=== PATIENT | female | born 1975 | race Caucasian/White ===

== ENCOUNTER → 2016-08-06 | Outpatient (CLI) | payer BC ==
[~2016-08-06] MED LIST: LEVO-217 PO; PRED20TA PO; SPIR25TA PO; [UNRECOGNIZED DRUG - CODE] PO
[2016-08-06 12:38] LABS: HEMATOCRIT 37.3 % (37-47); MEAN CELL VOLUME 94.4 fL (80-100); MEAN CORPUSCULAR HEMOGLOBIN 31.6 pg (25-34); MEAN CORPUSCULAR HGB CONC 33.5 g/dl (32-36); MEAN PLATELET VOLUME 9.8 fL (7.4-10.4); PLATELET COUNT 249 K/uL (130-400); RED BLOOD COUNT 3.95 M/uL (4.2-5.4); WHITE BLOOD COUNT 6.93 K/uL (4.8-10.8)
[2016-08-06 12:58] LABS: ALT/SGPT 20 U/L (12-78); BLOOD UREA NITROGEN 9 mg/dl (7-18); BUN/CREATININE RATIO 10.7 (10-20); CALCIUM 8.7 mg/dl (8.5-10.1); CARBON DIOXIDE 27 mmol/L (21-32); CHLORIDE 105 mmol/L (98-107); CHOLESTEROL 146 mg/dl (0-200); CREATININE 0.83 mg/dl (0.60-1.20); GLUCOSE 82 mg/dl (70-99); POTASSIUM 4.1 mmol/L (3.5-5.1); SODIUM 139 mmol/L (136-145); TRIGLYCERIDES 56 mg/dl (0-150); VERY LOW DENSITY LIPOPROT CALC 11 mg/dl
[2016-08-06 13:01] LABS: ALB/GLOB RATIO 1.2 (0.9-2); ALKALINE PHOSPHATASE 44 U/L (45-117); AST/SGOT 18 U/L (15-37); CHOLESTEROL/HDL RATIO 2.1; HDL CHOLESTEROL 69 mg/dl; LDL CHOLESTEROL CALCULATED 66 mg/dl
== END | disposition home or self-care (01) ==
LOC: C.LABBFT 08:41
PROVIDERS: ATTEND Physician Assistant Medical
DX: Z13.6 Encounter for screening for cardiovascular disorders (principal); Z13.1 Encounter for screening for diabetes mellitus

== ENCOUNTER → 2016-10-30 | Outpatient (CLI) | payer BC | END | disposition home or self-care (01) | LOC: C.PAPS 11:58 | PROVIDERS: ATTEND Obstetrics & Gynecology | DX: Z01.419 Encounter for gynecological examination (general) (routine) without abnormal findings (principal) ==

== ENCOUNTER → 2016-12-11 | Outpatient (CLI) | payer BC ==
--- NOTE | 2016-12-11 15:22 | MAMMOGRAPHY REPORT ---
BILATERAL DIGITAL SCREENING MAMMOGRAM TOMOSYNTHESIS WITH CAD: 12/11/2016 CLINICAL HISTORY: Routine screening. Patient has no complaints. TECHNIQUE: Breast tomosynthesis in addition to standard 2D mammography was performed. Current study was also evaluated with a Computer Aided Detection (CAD) system. COMPARISON: Comparison is made to exams dated: 12/11/2015 mammogram, 11/21/2014 mammogram, 11/20/2013 mammogram, 05/19/2013 mammogram, 12/19/2012 localization, and 12/19/2012 specimen - [facility]. BREAST COMPOSITION: The tissue of both breasts is heterogeneously dense, which may obscure small mas ses. FINDINGS: No suspicious masses, calcifications, or areas of architectural distortion are noted in ei ther breast. There has been no significant interval change compared to prior exams. IMPRESSION: ACR BI-RADS CATEGORY 1: NEGATIVE There is no mammographic evidence of malignancy. A 1 year screening mammogram is recommended. The pa tient will receive written notification of the results. Approximately 10% of breast cancers are not detected with mammography. A negative mammographic report should not delay biopsy if a clinically suggestive mass is present. Elissa Cesar M.D. ah/:12/11/2016 14:08:37 Drum Saw Operator: Laura ROSALES(R)(M), [facility] letter sent: Normal 1/2 BI-RADS Code: ACR BI-RADS Category 1: Negative
== END | disposition home or self-care (01) ==
LOC: C.MAMM 08:43
PROVIDERS: ATTEND Internal Medicine
DX: Z12.31 Encounter for screening mammogram for malignant neoplasm of breast (principal)

== ENCOUNTER → 2017-04-23 | Outpatient (CLI) | payer BC | END | disposition home or self-care (01) | LOC: C.RDSM 14:04 | PROVIDERS: ATTEND Physical Medicine & Rehabilitation Sports Medicine | DX: R22.40 Localized swelling, mass and lump, unspecified lower limb (principal); L98.9 Disorder of the skin and subcutaneous tissue, unspecified; M79.602 Pain in left arm ==

== ENCOUNTER → 2017-04-29 | Outpatient (CLI) | payer BC ==
--- NOTE | 2017-04-29 13:09 | DIAGNOSTIC IMAGING REPORT ---
MRI OF THE RIGHT FOREFOOT WITHOUT CONTRAST CLINICAL HISTORY: Right foot pain. Ganglion cyst. COMPARISON STUDY: Right foot radiographs April 23, 2017. TECHNIQUE: Utilizing a 1.5 Bethany magnet and dedicated coil, multiplanar, multiecho imaging of the right forefoot was performed without intravenous contrast. The MRI of the right ankle/hindfoot will be reported separately. FINDINGS: Tarsometatarsal joints are intact. No marrow edema or marrow replacement is present. There is no evidence for a stress fracture within the right forefoot. No erosions are identified. There is minimal osteoarthritis of the right first metatarsophalangeal joint. A marker was placed on the skin at site of palpable abnormality. There is a corresponding multiloculated subcutaneous cystic lesion that measures 1.7 x 0.6 x 1.4 cm within the dorsal subcutaneous tissues of the right midfoot, overlying the intermediate cuneiform bone and along the lateral aspect of the extensor hallucis longus tendon. No additional lesions are identified on this examination. No solid lesion is present. Musculature of the right forefoot is within normal limits. IMPRESSION: 1. 1.7 x 0.6 x 1.4 cm cystic multiloculated subcutaneous lesion of the dorsal subcutaneous tissues of the right midfoot, overlying the intermediate cuneiform bone and along the lateral aspect of the extensor hallucis longus tendon. This represents the palpable abnormality and is consistent with a ganglion cyst. 2. Otherwise, unremarkable MRI of the right forefoot. Electronically signed by: Derrick Santiago M.D. 04/29/2017 1:08 PM Dictated Date/Time: 04/29/2017 1:00 PM
--- NOTE | 2017-04-29 13:32 | DIAGNOSTIC IMAGING REPORT ---
MRI OF THE RIGHT ANKLE WITHOUT IV CONTRAST CLINICAL HISTORY: Right ankle pain. Ganglion. COMPARISON STUDY: No priors. TECHNIQUE: MRI of the right ankle was performed utilizing various T1 and T2-weighted sequences in the axial, sagittal, and coronal planes. IV contrast was not administered for this examination. Note that interpretation is suboptimal without plain film correlate. FINDINGS: Normal marrow signal intensity is preserved throughout the visualized osseous structures. There is no MRI evidence of fracture. No osteochondral defect is seen in the talar dome. No joint effusion is identified. The Achilles tendon is normal in morphology and signal intensity. A cutaneous marker has been placed along the dorsal surface of the midfoot, overlying the middle cuneiform. This measures 0.7 x 1.2 x 1.8 cm and is typical in appearance for a ganglion cyst. This abuts the extensor hallucis longus tendon which is mildly displaced medially. The anterior tendons are intact, as are the posterior and peroneal tendons. The visualized portions of the plantar fascia appear intact. Mild subcutaneous soft tissue edema is seen along the plantar aspect of the foot superficial to the plantar fascia. There is irregularity and thickening of the anterior tibiofibular ligament, likely related to remote injury. The anterior talofibular ligament appears intact. There is maintenance of normal fat within the sinus tarsi. The deltoid and spring ligaments are intact as visualized. The regional musculature is normal in bulk and signal intensity. IMPRESSION: 1. No acute osseous abnormality is identified involving the right ankle. 2. There is a 1.8 cm ganglion cyst identified along the dorsal surface of the foot at the level of the middle cuneiform. This is likely related to the sheath of the extensor hallucis longus tendon which is slightly displaced medially. 3. Question mild plantar fasciitis. Clinical correlation will be required. Dictated: 04/29/2017 1:03 PM Transcribed: 04/29/2017 1:32 PM [email or web address] Electronically signed by: Franklin Claudio M.D. 04/29/2017 2:03 PM Dictated Date/Time: 04/29/2017 1:03 PM
== END | disposition home or self-care (01) ==
LOC: C.MRI 11:47
PROVIDERS: ATTEND Physical Medicine & Rehabilitation Sports Medicine
DX: M67.471 Ganglion, right ankle and foot (principal)

== ENCOUNTER → 2017-05-18 | Outpatient (CLI) | payer BC | END | disposition home or self-care (01) | LOC: C.LABSPEC 10:14 | PROVIDERS: ATTEND Internal Medicine | DX: R39.9 Unspecified symptoms and signs involving the genitourinary system (principal) ==

== ENCOUNTER → 2017-09-15 | Outpatient (CLI) | payer BC ==
[~2017-09-15] MED LIST changes: +LEVO50TA PO; +MULT-506 PO; +RIZA10TA18 PO
--- NOTE | 2017-09-15 14:55 | MAMMOGRAPHY REPORT ---
BILATERAL DIGITAL SCREENING MAMMOGRAM TOMOSYNTHESIS WITH CAD: 09/15/2017 CLINICAL HISTORY: Routine screening. Patient has no complaints. TECHNIQUE: The study was acquired using full field digital technology and interpreted from soft copy. Breast tomosynthesis in addition to standard 2D mammography was performed. Current study was also ev aluated with a Computer Aided Detection (CAD) system. COMPARISON: Comparison is made to exams dated: 12/11/2016 mammogram, 12/11/2015 mammogram, 11/21/2014 mammogram, 11/20/2013 mammogram, 12/19/2012 specimen, and 11/18/2012 ultrasound - [facility]. BREAST COMPOSITION: The tissue of both breasts is heterogeneously dense, which may obscure small mass es. FINDINGS: A linear scar marker overlies the inferior right breast, denoting and area of prior surgery . No new suspicious mass, architectural distortion or cluster of microcalcifications is seen. IMPRESSION: ACR BI-RADS CATEGORY 1: NEGATIVE There is no mammographic evidence of malignancy. A 1 year screening mammogram is recommended.( 019) The patient will receive written notification of the results. Some breast cancers are not detected with mammography. A negative mammographic report should not андрей y biopsy if a clinically suggestive mass is present. Debbie Bailey M.D. ay/:09/15/2017 12:34:32 Membership Solicitor: Majo Hammond, [facility] letter sent: Normal 1/2 BI-RADS Code: ACR BI-RADS Category 1: Negative
== END | disposition home or self-care (01) ==
LOC: C.MAMM 09:48
PROVIDERS: ATTEND Internal Medicine
DX: Z12.31 Encounter for screening mammogram for malignant neoplasm of breast (principal)

== ENCOUNTER → 2017-09-28 | Outpatient (CLI) | payer BC ==
[~2017-09-28] MED LIST changes: +EPP3/2 IM; +HYDR-5688 PO; -LEVO-217 PO; +METH4PAK PO; -PRED20TA PO; -SPIR25TA PO; -[UNRECOGNIZED DRUG - CODE] PO
== END | disposition home or self-care (01) ==
LOC: C.LABBFT 10:29
PROVIDERS: ATTEND Internal Medicine
DX: R39.9 Unspecified symptoms and signs involving the genitourinary system (principal)

== ENCOUNTER 2017-09-29 16:56 | Emergency (ER) | payer BC ==
[~2017-09-29 16:56] MED LIST changes: -EPP3/2 IM; -HYDR-5688 PO; -METH4PAK PO
[2017-09-29 17:00] VITALS: TEMP 36.8
[2017-09-29] MEDS ORDERED: METHYLPREDNISOLONE 125 MG VIAL IV STA (17:17)
[2017-09-29] MEDS ORDERED: SODIUM CHLORIDE 0.9% 500ML 500 ML IV STA (17:17)
[2017-09-29] MEDS ORDERED: RANITIDINE HCL 50 MG/100 ML D5W IV STA (17:17)
[2017-09-29] MEDS ORDERED: DiphenhydrAMINE HCL 50 MG/ML VIAL IV STA (17:17)
[2017-09-29 17:48] LABS: BASO % 0.2 %; BASO ABS # 0.02 K/uL (0-0.2); EOS % 2.1 %; EOS ABS # 0.18 K/uL (0-0.5); HEMATOCRIT 38.1 % (37-47); HEMOGLOBIN 13.1 g/dL (12.0-16.0); IG# 0.01 K/uL (0.00-0.02); LYMPH % 25.8 %; LYMPH ABS # 2.21 K/uL (1.2-3.4); MEAN CELL VOLUME 92.7 fL (80-100); MEAN CORPUSCULAR HEMOGLOBIN 31.9 pg (25-34); MEAN CORPUSCULAR HGB CONC 34.4 g/dl (32-36); MEAN PLATELET VOLUME 9.5 fL (7.4-10.4); MONO % 7.1 %; MONO ABS # 0.61 K/uL (0.11-0.59); NEUT % 64.7 %; NEUT ABS # 5.55 K/uL (1.4-6.5); PLATELET COUNT 224 K/uL (130-400); RED CELL DISTRIBUTION WIDTH SD 40.8 fL (36.4-46.3); WHITE BLOOD COUNT 8.58 K/uL (4.8-10.8)
[2017-09-29 17:49] VITALS: O2SAT 100
[2017-09-29 18:04] LABS: BLOOD UREA NITROGEN 11 mg/dl (7-18); CALCIUM 8.9 mg/dl (8.5-10.1); CARBON DIOXIDE 25 mmol/L (21-32); CREATININE 0.89 mg/dl (0.60-1.20); GLUCOSE 147 mg/dl (70-99); POTASSIUM 3.9 mmol/L (3.5-5.1); SODIUM 138 mmol/L (136-145)
[2017-09-29] MEDS ORDERED: METH4PAK PO (19:33)
[2017-09-29] MEDS ORDERED: EPP3/2 IM (19:33)
[2017-09-29 20:54] VITALS: BP 116/66; PULSE 86; O2SAT 97
--- NOTE | 2017-09-29 22:28 | EMERGENCY ROOM VISIT NOTE ---
History First contact with patient: 17:05 Chief Complaint: ALLERGIC REACTION Stated Complaint: STUNG BY BEE, ALLERGIC, USED EPI Nursing Triage Summary: Second right toe bee sting. pt had Epi pen and Benadryl prior to ED History of Present Illness The patient is a 41 year old female who presents to the Emergency Room with complaints of a bee sting and anaphylactic reaction after being stung on the right second toe approximately 45 minutes prior to arrival. The patient reports that immediately after being stung, she started to notice a burning sensation in her right foot and ankle region. She then started to develop tightness in the chest. The patient took a Benadryl, and her administered an EpiPen before bringing her to the emergency department for further evaluation. Patient reports persistent chest tightness, but denies any shortness of breath, throat/tongue/lip swelling. She denies any nausea, headache or abdominal pain. She rates her discomfort a 4 out of 10. The patient has had a prior anaphylactic reaction to bee stings. She reports that her EpiPen injector is in date. Review of Systems HEENT: Denies dizziness, visual problems, hearing loss, tinnitus. Denies difficulty swallowing or oral lesions. PULMONARY: Denies cough, shortness of breath, sputum production or hemoptysis. CARDIOVASCULAR: Denies palpitations or dyspnea on exertion with this episode. GASTROINTESTINAL: Denies diarrhea, constipation, nausea, vomiting, or abdominal pain. GENITOURINARY: Denies dysuria, frequency, urgency or nocturia. NEUROLOGIC: Denies history of epilepsy, CVA, TIA or chronic headaches. MUSCULOSKELETAL: Denies history of joint tenderness/swelling. SKIN: Denies rashes or lesions. PSYCHIATRIC: Denies history of depression or mental illness. ENDOCRINE: Denies history of diabetes or thyroid disorders. Past Medical/Surgical History Medical Problems: (1) Anal Fissure (2) Hypothyroidism Nos (3) Lump Or Mass In Breast (4) Migraine (5) Ovarian Cyst Nec/Nos Surgical Problems: (1) No history of previous surgery Family History Unremarkable Social History Smoking Status: Never Smoker Alcohol Use: occasionally Marital Status: Housing Status: lives with family Occupation Status: employed Current/Historical Medications Scheduled Epinephrine (Epipen), 0.3 MG IM UD Levothyroxine Sodium (Synthroid), 50 MCG PO DAILY Methylprednisolone (Medrol Dosepak), 0 PO DAILY Multivitamin (Multivitamin), 1 TAB PO DAILY Scheduled PRN Rizatriptan Benzoate (Maxalt), 10 MG PO DIRECTED PRN for Migraine Physical Exam Vital Signs Date Time Temp Pulse Resp B/P (MAP) Pulse Ox O2 Delivery O2 Flow Rate FiO2 09/29/17 20:54 86 16 116/66 97 Room Air 09/29/17 18:30 62 16 117/68 100 Room Air 09/29/17 18:06 65 09/29/17 17:50 84 16 99 Room Air 09/29/17 17:49 100 Room Air 09/29/17 17:49 100 Room Air 09/29/17 17:22 Room Air 09/29/17 17:00 36.8 76 20 149/75 100 Room Air Physical Exam CONSTITUTIONAL: Healthy and well nourished. Alert and oriented X 3 with positive affect. Patient does not appear in any acute distress. HEENT: Normocephalic, atraumatic. Pupils equal, round and reactive. No scleral icterus or conjunctival injection. No facial erythema or edema noted. OROPHARYNX: No evidence for angioedema. NECK: Full active range of motion without discomfort. RESPIRATORY: Clear to auscultation bilaterally with no wheezing, crackles, rhonchi or stridor. CARDIOVASCULAR: Regular rate and rhythm with no murmurs, rubs or gallops. GASTROINTESTINAL: Bowel sounds present in all quadrants. Abdomen is soft and nontender to palpation. MUSCULOSKELETAL: Full range of motion of all joints without discomfort. No peripheral edema noted. Does have mild redness and swelling of the right second toe. Close examination with an otoscope does not show any retained stinger. INTEGUMENTARY: No rash or other significant dermatologic conditions noted. The hives or skin blanching/erythema. HEMATOLOGIC: No ecchymosis or petechiae. NEUROLOGIC: No focal neurologic deficits noted. Medical Decision & Procedures ER Provider Diagnostic Interpretation: My interpretation of an ECG shows a normal sinus rhythm of [address] elevation or other conduction abnormalities. Computer reading is suggestive of an incomplete right bundle branch block, however when compared with an ECG dated 02/26/96, there are no acute changes. The patient refused a portable chest x-ray. Laboratory Results 09/29/17 17:35 Red Blood Count 4.11, Mean Corpuscular Volume 92.7, Mean Corpuscular Hemoglobin 31.9, Mean Corpuscular Hemoglobin Concent 34.4, Mean Platelet Volume 9.5, Neutrophils (%) (Auto) 64.7, Lymphocytes (%) (Auto) 25.8, Monocytes (%) (Auto) 7.1, Eosinophils (%) (Auto) 2.1, Basophils (%) (Auto) 0.2, Neutrophils # (Auto) 5.55, Lymphocytes # (Auto) 2.21, Monocytes # (Auto) 0.61, Eosinophils # (Auto) 0.18, Basophils # (Auto) 0.02 09/29/17 17:35 Test 09/29/17 17:35 09/29/17 17:43 White Blood Count 8.58 K/uL (4.8-10.8) Red Blood Count 4.11 M/uL (4.2-5.4) Hemoglobin 13.1 g/dL (12.0-16.0) Hematocrit 38.1 % (37-47) Mean Corpuscular Volume 92.7 fL (80-100) Mean Corpuscular Hemoglobin 31.9 pg (25-34) Mean Corpuscular Hemoglobin Concent 34.4 g/dl (32-36) Platelet Count 224 K/uL (130-400) Mean Platelet Volume 9.5 fL (7.4-10.4) Neutrophils (%) (Auto) 64.7 % Lymphocytes (%) (Auto) 25.8 % Monocytes (%) (Auto) 7.1 % Eosinophils (%) (Auto) 2.1 % Basophils (%) (Auto) 0.2 % Neutrophils # (Auto) 5.55 K/uL (1.4-6.5) Lymphocytes # (Auto) 2.21 K/uL (1.2-3.4) Monocytes # (Auto) 0.61 K/uL (0.11-0.59) Eosinophils # (Auto) 0.18 K/uL (0-0.5) Basophils # (Auto) 0.02 K/uL (0-0.2) RDW Standard Deviation 40.8 fL (36.4-46.3) RDW Coefficient of Variation 12.0 % (11.5-14.5) Immature Granulocyte % (Auto) 0.1 % Immature Granulocyte # (Auto) 0.01 K/uL (0.00-0.02) Anion Gap 7.0 mmol/L (3-11) Estimated GFR () 92.0 Estimated GFR (Non- 79.4 BUN/Creatinine Ratio 12.7 (10-20) Calcium Level 8.9 mg/dl (8.5-10.1) Bedside Troponin I < 0.030 ng/ml (0-0.045) The above labs were reviewed and were normal, including a troponin. Medications Administered Medications (Trade) Dose Ordered Sig/Remy Route Start Time Stop Time Status Last Admin Dose Admin Ranitidine HCl (zANTac IV) 50 mg NOW STAT IV 09/29/17 17:17 09/29/17 17:22 DC 09/29/17 17:50 50 MG Methylprednisolone Sodium Succinate (Solu-Medrol IV) 125 mg NOW STAT IV 09/29/17 17:17 09/29/17 17:22 DC 09/29/17 17:50 125 MG Sodium Chloride 500 ml @ 999 mls/hr Q31M STAT IV 09/29/17 17:17 09/29/17 17:47 DC 09/29/17 17:50 999 MLS/HR Diphenhydramine HCl (Benadryl Inj) 25 mg NOW STAT IV 09/29/17 17:17 09/29/17 17:22 DC 09/29/17 17:50 25 MG ED Course Patient history and physical exam were performed. Nurse's notes were reviewed. Vital signs were reviewed and were normal. The patient is not tachycardic, hypoxic or hypotensive. She does not appear in any acute distress, but does complain of some chest tightness. She has no evidence for angioedema. The patient reports that she did take Benadryl 25 mg at home. IV access was established, and labs were drawn. The patient was administered IV Solu-Medrol, Benadryl 25 mg and Zantac 50 mg IVP. She was also hydrated with normal saline. The patient was placed on compliance monitor. The patient remained hemodynamically stable while in the emergency department. The patient had no further worsening symptoms while in the emergency department, and did report improvement of her chest tightness while being observed for 3 hours. At 3 hours , the patient was rechecked and still felt stable enough for discharge. The patient was provided a prescription for an EpiPen 2 pack, and Medrol Dosepak. I did encourage her to take Benadryl and Zantac over the next few days to help suppress this reaction. If the patient has any significant anaphylactic response, she was instructed to self administer her EpiPen again, and call 911. She was encouraged to keep cool and avoid heat over the next few days. An anaphylaxis handout was provided. The patient was happy with plan of care, voiced understanding of all discharge instructions, and discharged with her . Medical Decision Patient presents to the emergency department for of an anaphylactic response to a bee sting. The patient was on compliance monitor while in the emergency department, and had no adverse events over 3 hour observation period. I do feel the patient is safe for outpatient management as she was asymptomatic at the time of reassessment. [facility] Drug Monitoring Program Search Results: patient reviewed within database Medication Reconcilliation Current Medication List: was personally reviewed by me Blood Pressure Screening Patient's blood pressure: Normal blood pressure Impression Primary Impression: Anaphylactic reaction to bee sting Departure Information Dispostion Home / Self-Care Condition FAIR Prescriptions Epinephrine (EPIPEN) 0.3 Mg/0.3 Ml Inj 0.3 MG IM UD, #2 UNITS Prov: Quique Alvarenga PA 09/29/17 Methylprednisolone (MEDROL DOSEPAK) 4 Mg Dell 0 PO DAILY, #1 PKT Prov: Quique Avlarenga PA 09/29/17 Forms HOME CARE DOCUMENTATION FORM, IMPORTANT VISIT INFORMATION Patient Instructions My [facility], Epinephrine injection Auto-injector Additional Instructions Suggest taking Benadryl 25-50 mg every 6 hours PLUS Zantac 150 mg every 12 hours. Take these medications for the next 48-72 hours. Take Medrol Dosepak as prescribed, next dose tomorrow afternoon. Keep cool and avoid hot showers. If you develop any recurrent severe reaction, administer your EpiPen and call 911 immediately. Problem Qualifiers Primary Impression: Anaphylactic reaction to bee sting Encounter type: initial encounter Injury intent: accidental or unintentional Qualified Codes: T63.441A - Toxic effect of venom of bees, accidental (unintentional), initial encounter
== END 2017-09-29 20:56 | disposition home or self-care (01) ==
LOC: C.EDB 16:57 → C.EDA 20:56
DX: T63.441A Toxic effect of venom of bees, accidental (unintentional), initial encounter (principal); R07.89 Other chest pain; E03.9 Hypothyroidism, unspecified

== ENCOUNTER → 2017-10-04 | Outpatient (CLI) | payer BC ==
[~2017-10-04] MED LIST changes: +EPP3/2 IM; +HYDR-5688 PO; +METH4PAK PO
== END | disposition home or self-care (01) ==
LOC: C.LAB1850 09:40
PROVIDERS: ATTEND Physician Assistant
DX: M67.471 Ganglion, right ankle and foot (principal); N39.0 Urinary tract infection, site not specified

== ENCOUNTER → 2017-10-07 | Day surgery (SDC) | payer BC ==
[2017-09-17 08:21] VITALS: Ht 157.5 cm; Wt 58.2 kg
[~2017-10-07] VITALS: Ht 157.5 cm; Wt 58.2 kg
[~2017-10-07] MED LIST changes: +ATROPINE SULFATE 0.1 MG/ML 5ML SYR IV PRN; +BUPIVACAINE 0.5 % 5 MG/1 ML PF 10ML VIAL ONE; +CEFAZOLIN 1000MG IV PUSH 7.5 ML IV SCH; +DEXAMETHASONE SOD INJ 4 MG/ML VIAL ONE; +EpHEDrine SULFATE 50MG/5ML SYR ONE; +EpHEDrine SULFATE INJ 50 MG/ML AMP IV PRN; +FENTANYL CITRATE INJ 50 MCG/1 ML 2 ML VIAL ONE; +FLUMAZENIL 0.1 MG/1 ML 10 ML VIAL IV PRN; +GLYCOPYRROLATE INJ 0.2 MG/ML VIAL ONE; +HYDROmorphone INJ 0.5 MG/0.5 ML SYR ONE; +HYDROmorphone INJ 1 MG/ML SYR IV PRN; +MIDAZOLAM HCL 1 MG/ML 2ML VIAL ONE; +NALOXONE HCL 0.4 MG/1 ML VIAL/CARP IV PRN; +ONDANSETRON INJ 2 MG/ML 2 ML VIAL IV PRN; +ONDANSETRON INJ 2 MG/ML 2 ML VIAL ONE; +OXYCODONE/ACETAMINOPHEN 5-325 TAB PO PRN; +PROMETHAZINE HCL INJ 12.5 MG in SODIUM CHLORIDE 0.9% 50ML 50 ML IV PRN; +PROMETHAZINE HCL INJ 25 MG/ML 1 ML VIAL ONE; +PROPOFOL IV EMULSION 10 MG/ML 20 ML VIAL ONE; +SODIUM CHLORIDE 0.9% 1000ML 1,000 ML IV SCH
--- NOTE | 2017-10-07 09:25 | History & Physical Bridge Note ---
H&P Re-Evaluation Bridge Note: I have examined the patient, reviewed the History & Physical and in the interval since the performance of the History & Physical I have noted the following changes of clinical significance: No changes noted
[2017-10-07] MEDS: LACTATED RINGER'S 1000ML 1,000 ML IV SCH ×2 (09:39→12:21)
--- NOTE | 2017-10-07 11:41 | [facility] Operative Report ---
Operative Report Operative Date Oct 07, 2017. Pre-Operative Diagnosis Right Foot Ganglion Cyst Post-Operative Diagnosis Same As pre Op Procedure(s) Performed Right Foot Ganglion Cyst Excision Surgeon Dr. Pfeiffer Cell Room Operator Surgeon(s) Mandy Hernandez PA-C Estimated Blood Loss 3ML Findings Ganglion cyst Specimens A: Ganglion Right Foot Drains None Anesthesia Laryngeal mask Complication(s) None Disposition Recovery Room / PACU Indications Patient's 41-year-old female with a ganglion cyst on the dorsum of her right foot. She wishes to have this excised. Description of Procedure Informed consent obtained. Patient identified. She identified the operative site as the right foot. I marked with my initials. There is a 1-1/2-2 cm soft pliable lesion on the dorsal aspect of the foot. The dorsalis pedis pulse was not palpable and a Doppler was not available. DVT prophylaxis not indicated. The leg was prepped and draped in usual sterile fashion. She was positioned supine on the OR table. A laryngeal mask anesthetic was administered. Preop timeout done. Preop dose of IV antibiotics given bump under the right hip. No local anesthetic as she has anaphylaxis with lidocaine. The limb was exsanguinated with the Esmarch tourniquet inflated 225 mmHg. Tourniquet time was 16 minutes. A 5 cm incision was made directly over the cyst. Blunt dissection was performed on over the cyst. The neurovascular bundle was identified and part of the nerve was retracted medial and the main neurovascular bundle lateral. The lesion was then circumferentially bluntly dissected. It appeared to be densely adherent to the tarsometatarsal articulation. Was bluntly removed it appeared that the connection was to the second tarsometatarsal articulation. At that point a small patch 2 x 4 mm of dorsal joint capsule was excised at the suspected area of cyst origin. The tourniquet was let down and a pulsatile dorsalis pedis artery was confirmed. Bleeding was controlled with pressure. Irrigation was performed. The skin was then closed with 4-0 nylon in an interrupted fashion. A soft sterile dressing was applied along with a postop shoe. She was awakened from anesthesia without difficulty and taken to the recovery room in stable condition. The lesion was sent for specimen. There were no complications. The lesion was a fluid-filled sac with typical clear ganglion type dehydrated fluid. No complications. Counts correct. Blood loss minimal. At the conclusion operation spoke patient's family and informed of my findings. Postoperative instructions were given. She does not need DVT prophylaxis. She can weight-bear as tolerated in a postop shoe I attest to the content of the Intraoperative Record and any orders documented therein. Any exceptions are noted below.
--- NOTE | 2017-10-07 12:00 | Discharge Instructions-SurgCtr ---
Discharge Instructions Date of Service Oct 07, 2017. Visit Reason for Visit: Right Foot Ganglion Cyst Discharge Discharge Diagnosis / Problem: Right foot ganglion cyst Discharge Goals Goal(s): Decrease discomfort, Improve function, Increase independence Activity Recommendations Activity Limitations: per Instructions/Follow-up section Weightbearing Status: Right weightbearing (as tolerated with postop shoe) Anesthesia . Post Anesthesia Instructions: If you have had General Anesthesia or IV Sedation: * Do not drive today. * Resume driving when surgeon permits. * Do not make important decisions or sign legal documents today. * Call surgeon for: 1. Temperature elevations greater than 101 degrees F. 2. Uncontrollable pain. 3. Excessive bleeding. 4. Persistent nausea and vomiting. 5. Medication intolerance (nausea, vomiting or rash). * For nausea and vomiting use only clear liquids such as: tea, soda, bouillon until nausea subsides, then gradually increase diet as tolerated. * If you have any concerns or questions, call your surgeon's office. If physician is unavailable and it is an emergency, call 911 or go to the nearest emergency room. . Instructions / Follow-Up Instructions / Follow-Up DIET: * Resume previous diet. MEDICATIONS: * Please take your prescriptions as instructed at your pre-op appointment and/ or see medication discharge instructions listed above. * If concerns develop, call your physician's office at . SPECIAL CARE INSTRUCTIONS: * Ice to right foot as needed for pain and swelling. *Elevate right lower extremity above heart to relieve pain and swelling. * Keep dressing clean, dry, intact. With a postop shoe when out of bed. *You may weight-bear as tolerated with the assistance of crutches. He can progress off crutches as you feel comfortable. Wear the postop shoe with walking. * Your surgical extremity may be discolored due to prepping agents used on the skin. A bluish-green tint is a normal variant and should not cause alarm. Call your doctor at [phone] if: * Temperature above 101 degrees * Pain not relieved by pain medicine ordered * There is increased drainage or redness from any incision * You have any unanswered questions, problems or concerns. FOLLOW UP VISIT: * If not already scheduled, please call the office at to schedule a follow-up appointment. *You have a follow-up with Nicole Hernandez PA-C on 10/11/2017 at 9 AM. *You have a follow-up with Dr. Pfeiffer on October 19, 2017 and 8:15 AM. Diet Recommendations Home Diet: no limitations, resume previous diet Procedures Procedures Performed: Right Foot Ganglion Cyst Excision Pending Studies Studies pending at discharge: no Medical Emergencies . Who to Call and When: Medical Emergencies: If at any time you feel your situation is an emergency, please call 911 immediately. . Non-Emergent Contact Non-Emergency issues call your: Surgeon Call Non-Emergent contact if: temperature is above 101, your pain is not controlled, your pain is worsening, your pain is unusual for you, your pain is concerning you, wound has increased drainage, wound has increased redness, wound has increased pain, you have any medication questions . . "Provider Documentation" section prepared by Nicole Hernandez. . [place] Drug Monitoring Program Search Results: patient reviewed within database, no issues identified
--- NOTE | 2017-10-07 12:02 | [facility] Operative Report ---
Operative Report Operative Date Oct 07, 2017. Pre-Operative Diagnosis Right Foot Ganglion Cyst Post-Operative Diagnosis Same As pre Op Procedure(s) Performed Right Foot Ganglion Cyst Excision Surgeon Dr. Pfeiffer Straddle [employer] Operator Surgeon(s) Mandy Hernandez PA-C Estimated Blood Loss 3ML Findings Ganglion cyst right foot Specimens A: Ganglion Right Foot Drains None None Anesthesia Type General Complication(s) none Disposition no Recovery Room / PACU Indications Patient is a 41-year-old female has had swelling on the top of the right foot for approximately 2 years. It developed after an injury when a football dropped on her foot. She says that the cyst is gotten larger last couple of months. It does become painful especially with certain shoe wear. X-rays were taken and found no bony abnormality. MRI was obtained and found to have a ganglion cyst in the dorsal aspect of her right foot. Conservative treatment versus surgical intervention was discussed. She wished to proceed with surgery. Risks and complications were discussed and informed consent was obtained. Description of Procedure Patient was taken to the operating room placed under general anesthesia. She was given 1 g of IV Ancef for surgical prophylaxis. Timeout was performed. She was prepped and draped in routine sterile fashion. I was present during the entire case, please see Dr. Pfeiffer's operative report for further detail. Patient was awakened and transferred to the recovery room in stable condition. I attest to the content of the Intraoperative Record and any orders documented therein. Any exceptions are noted below.
--- NOTE | 2017-10-07 13:18 | Anesthesia Progress Nt - [facility] ---
Anesthesia Post Op Note Date & Time Oct 07, 2017 at 13:16 Vital Signs Pain Intensity: 6 Vital Signs Past 12 Hours Date Time Temp Pulse Resp B/P (MAP) Pulse Ox O2 Delivery O2 Flow Rate FiO2 10/07/17 11:53 36.4 78 16 148/95 100 Mask 6 10/07/17 09:20 36.6 75 20 121/77 (92) 99 Room Air Notes Mental Status: alert / awake / arousable, participated in evaluation Pt Amnestic to Procedure: Yes Nausea / Vomiting: improving with treatment Pain: improving with treatment Airway Patency, RR, SpO2: stable & adequate BP & HR: stable & adequate Hydration State: stable & adequate Anesthetic Complications: no major complications apparent
[2017-10-07 13:35] VITALS: TEMP 36.5
[2017-10-07 13:59] VITALS: BP 108/64; PULSE 79; O2SAT 100
== END | disposition home or self-care (01) ==
LOC: X.SURG 08:55
PROVIDERS: ATTEND Physical Medicine & Rehabilitation Sports Medicine
DX: M67.471 Ganglion, right ankle and foot (principal); K21.9 Gastro-esophageal reflux disease without esophagitis; K44.9 Diaphragmatic hernia without obstruction or gangrene; E05.90 Thyrotoxicosis, unspecified without thyrotoxic crisis or storm; Z79.899 Other long term (current) drug therapy; Z88.1 Allergy status to other antibiotic agents; Z88.8 Allergy status to other drugs, medicaments and biological substances; Z88.6 Allergy status to analgesic agent; Z91.013 Allergy to seafood; Z91.030 Bee allergy status